=== PATIENT | female | born 1990 | race Caucasian/White ===

== ENCOUNTER 2017-12-15 22:25 | Emergency (ER) | payer OTHER ==
[~2017-12-15] VITALS: Ht 162.6 cm; Wt 54.4 kg
[~2017-12-15 22:25] MED LIST: OMEPRAZOLE20 MG PO
[2017-12-15] MEDS ORDERED: NICOTINE PATCH1 EACH TD (22:43)
--- OUTSIDE RECORDS SUMMARY | 2017-12-16 00:01 | XMS ---
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 [place] has no Care Guidelines for this patient. Jaspal VISIT COUNT (12 MO.) [facility] NOTE: Visits indicate total known visits. ED/UCC VISIT TRACKING (12 MO.) [facility] COMPLAINT: - NOSE BLEED 11/19/2017 13:11 Morgan Dodson [facility] TYPE: Emergency DIAGNOSES: - Local infection of the skin and subcutaneous tissue, unspecified - Skin Problem - Other specified bacterial agents as the cause of diseases classified elsewhere - Staff infection INPATIENT VISIT TRACKING (12 MO.) No inpatient visits to display in this time frame [email or web address]
== END 2017-12-15 23:57 | disposition home or self-care (01) ==
LOC: ED 22:25
DX: R04.0 Epistaxis (principal); F17.200 Nicotine dependence, unspecified, uncomplicated; D64.9 Anemia, unspecified; Z88.8 Allergy status to other drugs, medicaments and biological substances
CPT/HCPCS: 80053; 85025; 85610; 85730; 99283